=== PATIENT | male | born 1965 | race African-American/Black ===

== ENCOUNTER → 2018-10-29 | Outpatient (CLI) | payer OTHER ==
[~2018-10-29] MED LIST: IOPAMIDOL 370 MG/ML 200 ML INFUS..BTL INJ ONE; SODIUM CHLORIDE 0.9% 50ML 50 ML ONE
--- NOTE | 2018-10-29 09:06 | Diagnostic Imaging Report ---
EXAM: CT Abdomen WITH intravenous contrast INDICATION: Postprandial pain. COMPARISON: None. TECHNIQUE: Abdomen was scanned utilizing a multidetector helical scanner from the lung base to the iliac crest after administration of IV contrast. Coronal and sagittal reformations were obtained. Routine protocol was performed. Scan was performed when during portal venous phase. IV CONTRAST: 100mL of Isovue 370 ORAL CONTRAST: Water COMPLICATIONS: None RADIATION DOSE: Total DLP: 1006.09 mGy*cm Dose modulation, iterative reconstruction, and/or weight based adjustment of the mA/kV was utilized to reduce the radiation dose to as low as reasonably achievable. FINDINGS: Study is limited by patient body habitus (patient touches the gantry) and related quantum mottle artifact. LOWER THORAX: Normal. HEPATOBILIARY: No focal hepatic lesions. No biliary ductal dilatation. The gallbladder appears unremarkable. SPLEEN: No splenomegaly. PANCREAS: No focal masses or ductal dilatation. ADRENALS: Apparent 1.9 cm left adrenal nodule. No right adrenal nodule. KIDNEYS/URETERS: Left kidney lower pole exophytic mass (38 HU) measuring up to 2.1 cm. PERITONEUM / RETROPERITONEUM: Small amount of free fluid in the lower abdomen. LYMPH NODES: No lymphadenopathy. VESSELS: Unremarkable. GI TRACT: No distention or wall thickening. BONES AND SOFT TISSUES: No acute osseous injury. Mild degenerative changes of the visualized spine. IMPRESSION: No CT evidence of pancreatitis. No bowel obstruction. Left kidney lower pole 2.1 cm exophytic mass may represent a hyperdense cyst versus renal neoplasm. 1.9 cm left adrenal nodule is indeterminate on single phase CT imaging. Follow-up adrenal mass protocol CT in one year is recommended for assessment of stability. Signed by: Rk Peralta MD on 10/29/2018 9:03 AM
== END ==
LOC: CT 07:22
PROVIDERS: ATTEND Family Medicine
DX: K85.90 Acute pancreatitis without necrosis or infection, unspecified (principal)
CPT/HCPCS: 74160; Q9967